=== PATIENT | male | born 2000 | race Caucasian/White ===

== ENCOUNTER 2022-10-09 13:30 | Emergency (ER) | payer SELFPAY ==
[2022-10-09] MEDS ORDERED: Lidocaine 1% 5 ML VIAL INJECT ONE (15:21)
[2022-10-09] MEDS ORDERED: Bupivacaine 0.25% 10 ML SDV INJECT ONE (15:21)
== END 2022-10-09 17:05 | disposition home or self-care (01) ==
LOC: MW.ED 13:30
DX: S01.511A Laceration without foreign body of lip, initial encounter (principal); W01.198A Fall on same level from slipping, tripping and stumbling with subsequent striking against other object, initial encounter
CPT/HCPCS: 12011; 70450; 99283; J3490